=== PATIENT | male | born 2000 | race Caucasian/White ===

== ENCOUNTER 2020-11-01 00:27 | Emergency (ER) | payer BC ==
[~2020-11-01] VITALS: Ht 175.3 cm; Wt 93.4 kg
[2020-11-01 00:43] VITALS: Ht 175.3 cm; Wt 93.4 kg
[2020-11-01] MEDS ORDERED: ACETAMINOPHEN-H1 TA1 PO (01:08)
[2020-11-01] MEDS ORDERED: KEFLEX500 M1 PO (01:08)
[2020-11-01 01:18] VITALS: BP 113/73
== END 2020-11-01 01:18 | disposition home or self-care (01) ==
LOC: ED 00:27
DX: L05.01 Pilonidal cyst with abscess (principal)